=== PATIENT | male | born 1995 | race Two or more races ===

== ENCOUNTER 2018-09-05 19:03 | Emergency (ER) | payer MEDICAID, OTHER ==
[~2018-09-05] VITALS: Ht 165.1 cm; Wt 69.1 kg
[2018-09-05] MEDS ORDERED: CYCLOBENZAPRINE 10 MG TABLET PO SCH (20:00)
[2018-09-05] MEDS ORDERED: KETOROLAC 30 MG/1 ML IM ONE (20:00)
[2018-09-05] MEDS ORDERED: KETOROLAC 30 MG/1 ML ONE (20:08)
[2018-09-05] MEDS ORDERED: CYCLOBENZAPRINE 10 MG TABLET ONE (20:08)
[2018-09-05 21:47] VITALS: BP 118/74
== END 2018-09-05 21:49 | disposition home or self-care (01) ==
LOC: ED 21:13
DX: S39.012A Strain of muscle, fascia and tendon of lower back, initial encounter (principal); X58.XXXA Exposure to other specified factors, initial encounter; Y93.89 Activity, other specified; Y92.89 Other specified places as the place of occurrence of the external cause; Y99.8 Other external cause status
CPT/HCPCS: 72110; 96372; 99284; J1885